=== PATIENT | male | born 1935 | race Caucasian/White ===

== ENCOUNTER 2016-09-13 09:14 | Inpatient (IN) | payer OTHER ==
[~2016-09-13] VITALS: Ht 177.8 cm; Wt 63.0 kg
[~2016-09-13 09:14] MED LIST: CELLCEPT250 MG PO; FLOMAX0.4 MG PO; METOPROLOL TART50 MG PO; NORCO 5/3251 TABLET PO
[2016-09-13 10:44] LABS: EOSINOPHIL (%) 0.2 % (0-5); HEMATOCRIT 39.8 % (38.0-50.0); IMMATURE GRANULOCYTE (%) 0.8 % (0.0-0.7); IMMATURE GRANULOCYTE COUNT 0.5 K/uL; LYMPHOCYTE COUNT 1.2 K/uL (1.0-2.8); MCH 31.5 PG (29.0-34.0); MCHC 33.4 G/DL (30.0-36.0); MCV 94.3 FL (86-99); MEAN PLAT.VOLUME 9.2 uM^3 (9.0-12.4); MONOCYTE (%) 10.7 % (3-12); MONOCYTE COUNT 0.7 K/uL (0-0.8); NEUTROPHIL (%) 69.6 % (45-76); NEUTROPHIL COUNT 4.5 K/uL (1.8-6.4); PLATELET COUNT 143 K/uL (156-360); RBC DIS.WIDTH-CV 15.3 % (11.8-14.6); RBC DIS.WIDTH-SD 50.5 % (39-53); RED BLOOD COUNT 4.22 M/uL (4.00-5.50); WHITE BLOOD COUNT 6.5 K/uL (4.1-10.2)
[2016-09-13 11:05] LABS: CHLORIDE 114 mEq/L (99-109); POTASSIUM 4.8 mEq/L (3.7-5.4); SODIUM 139 mEq/L (136-147)
[2016-09-13 11:07] LABS: GLUCOSE 101 mg/dL (70-99)
[2016-09-13 11:08] LABS: ANION GAP 13 MEQ/L (2-14)
[2016-09-13 11:09] LABS: TOTAL BILIRUBIN 0.4 mg/dL (0.0-1.0)
[2016-09-13 11:10] LABS: ALKALINE PHOSPHATASE 158 IU/L (3-129)
[2016-09-13 11:11] LABS: GFR ESTIMATE (CALCULATED) 14 mL/min/
[2016-09-13 11:12] LABS: UREA NITROGEN (BUN) 51 mg/dL (9-23)
[2016-09-13 11:14] LABS: LIPASE 47 U/L (1.0-51.0)
[2016-09-13] MEDS ORDERED: LOPRESSOR25 MG PO (12:30)
[2016-09-13] MEDS ORDERED: TYLENOL EXTRA500 MG PO (12:31)
[2016-09-13] MEDS ORDERED: ZINC50 M1 PO (12:32)
[2016-09-13] MEDS ORDERED: VITAMIN D2000 UNI1 PO (12:32)
[2016-09-13] MEDS ORDERED: ISOSORBIDE MONO30 MG PO (12:32)
[2016-09-13] MEDS ORDERED: FOLIC ACID0.4 MG PO (12:33)
[2016-09-13] MEDS ORDERED: SUPER B-50 COM1 EACH PO ×2 (12:33→12:34)
[2016-09-13] MEDS ORDERED: IRON325 M1 PO (12:34)
[2016-09-13] MEDS ORDERED: CYANOCOBALAM1000 MCG PO (12:34)
[2016-09-13] MEDS ORDERED: ANTI-DIARRHEA2 MG PO (12:35)
[2016-09-13] MEDS ORDERED: LO-DOSE ASPIRIN81 M1 PO (12:35)
[2016-09-13 12:46] LABS: C DIFF TOXIN NEGATIVE (NEGATIVE); PROBE CHECK PASS; SPECIMEN PROCESSING CONTROL PASS
[2016-09-13 15:25] LABS: ADD MIUA? YES; BILIRUBIN NEGATIVE; BLOOD MODERATE; COLOR YELLOW ((YELLOW)); GLUCOSE (STRIP) NEGATIVE; KETONES NEGATIVE; LEUKOCYTES LARGE; NITRITE NEGATIVE; PROTEIN (STRIP) 30; SPECIFIC GRAVITY 1.015 (1.000-1.030); UROBILINOGEN 0.2 MG/DL (0.2-1.0)
[2016-09-13 15:40] LABS: BACTERIA RARE /HPF; EPITHELIAL CELLS RARE /HPF; HYALINE CASTS 0-5 /LPF; MUCUS NONE SEEN /LPF; RED BLOOD CELLS TNTC /HPF (0-5); UCUL ADDED? NO; WHITE BLOOD CELLS 40-50 /HPF (0-5)
[2016-09-13 15:50] LABS: UR CREATININE CONCENTRATION 81.6 MG/DL
[2016-09-13 16:06] LABS: INTERNAL CONTROL VALID? YES
[2016-09-13 16:21] VITALS: BP 160/72
[2016-09-13 19:20] VITALS: BP 122/58
[2016-09-13 23:02] VITALS: BP 109/54
[2016-09-14 03:23] VITALS: BP 126/57
[2016-09-14 07:17] LABS: HEMATOCRIT 32.1 % (38.0-50.0); MCH 29.7 PG (29.0-34.0); MCHC 32.1 G/DL (30.0-36.0); MCV 92.5 FL (86-99); MEAN PLAT.VOLUME 9.6 uM^3 (9.0-12.4); PLATELET COUNT 116 K/uL (156-360); RBC DIS.WIDTH-SD 51.2 % (39-53); RED BLOOD COUNT 3.47 M/uL (4.00-5.50)
[2016-09-14 07:18] LABS: WHITE BLOOD COUNT 3.9 K/uL (4.1-10.2)
[2016-09-14 07:24] LABS: ANION GAP 8 MEQ/L (2-14); CHLORIDE 109 MEQ/L (99-109); GLUCOSE 87 mg/dL (70-99); SAMPLE HEMOLYSIS CHECK 0; SAMPLE ICTERIC CHECK 0; SAMPLE LIPEMIA CHECK 0; SODIUM 136 MEQ/L (136-147); UREA NITROGEN (BUN) 29 mg/dL (9-23)
[2016-09-14 07:25] LABS: GFR ESTIMATE (CALCULATED) 44 mL/min/
[2016-09-14 07:42] VITALS: BP 129/62
[2016-09-14 11:24] VITALS: BP 112/59
[2016-09-14 14:58] VITALS: BP 134/63
[2016-09-14 19:35] VITALS: BP 142/63
[2016-09-14 23:09] VITALS: BP 160/70
[2016-09-15 03:20] VITALS: BP 157/65
[2016-09-15 06:33] LABS: EOSINOPHIL (%) 1.7 % (0-5); EOSINOPHIL COUNT 0.1 K/uL (0-0.3); HEMATOCRIT 34.2 % (38.0-50.0); IMMATURE GRANULOCYTE (%) 0.2 % (0.0-0.7); LYMPHOCYTE COUNT 1.5 K/uL (1.0-2.8); MCH 29.3 PG (29.0-34.0); MCHC 31.6 G/DL (30.0-36.0); MCV 92.9 FL (86-99); MEAN PLAT.VOLUME 9.4 uM^3 (9.0-12.4); MONOCYTE (%) 13.7 % (3-12); MONOCYTE COUNT 0.6 K/uL (0-0.8); NEUTROPHIL (%) 49.1 % (45-76); NEUTROPHIL COUNT 2.1 K/uL (1.8-6.4); PLATELET COUNT 116 K/uL (156-360); RBC DIS.WIDTH-CV 14.9 % (11.8-14.6); RBC DIS.WIDTH-SD 50.9 % (39-53); RED BLOOD COUNT 3.68 M/uL (4.00-5.50); WHITE BLOOD COUNT 4.2 K/uL (4.1-10.2)
[2016-09-15 06:55] LABS: ANION GAP 7 MEQ/L (2-14); CHLORIDE 110 MEQ/L (99-109); GFR ESTIMATE (CALCULATED) > 59 mL/min/; GLUCOSE 96 mg/dL (70-99); POTASSIUM 3.9 MEQ/L (3.7-5.4); SAMPLE HEMOLYSIS CHECK 0; SAMPLE ICTERIC CHECK 0; SAMPLE LIPEMIA CHECK 0; SODIUM 136 MEQ/L (136-147); UREA NITROGEN (BUN) 19 mg/dL (9-23)
[2016-09-15 08:12] VITALS: BP 148/67
[2016-09-15 13:44] LABS: ADD MIUA? YES; BILIRUBIN NEGATIVE; BLOOD MODERATE; COLOR COLORLESS ((YELLOW)); GLUCOSE (STRIP) NEGATIVE; KETONES NEGATIVE; LEUKOCYTES NEGATIVE; NITRITE NEGATIVE; PROTEIN (STRIP) NEGATIVE; SPECIFIC GRAVITY 1.004 (1.000-1.030); UROBILINOGEN 0.2 MG/DL (0.2-1.0)
[2016-09-15 14:09] LABS: BACTERIA RARE /HPF; EPITHELIAL CELLS NONE SEEN /HPF; MUCUS TRACE /LPF; RED BLOOD CELLS TNTC /HPF (0-5); UCUL ADDED? NO; WHITE BLOOD CELLS 0-5 /HPF (0-5)
[2016-09-15 15:44] VITALS: BP 116/56
[2016-09-15 18:30] LABS: ANION GAP 6 MEQ/L (2-14); CHLORIDE 109 MEQ/L (99-109); GFR ESTIMATE (CALCULATED) > 59 mL/min/; GLUCOSE 86 mg/dL (70-99); POTASSIUM 3.8 MEQ/L (3.7-5.4); SAMPLE HEMOLYSIS CHECK 0; SAMPLE ICTERIC CHECK 0; SAMPLE LIPEMIA CHECK 0; SODIUM 137 MEQ/L (136-147); UREA NITROGEN (BUN) 17 mg/dL (9-23)
[2016-09-15 20:05] VITALS: BP 122/69
[2016-09-15 23:04] VITALS: BP 127/63
[2016-09-16 03:32] VITALS: BP 125/69
[2016-09-16 06:08] LABS: EOSINOPHIL COUNT 0.2 K/uL (0-0.3); IMMATURE GRANULOCYTE (%) 0.2 % (0.0-0.7); LYMPHOCYTE COUNT 1.6 K/uL (1.0-2.8); MCH 30.7 PG (29.0-34.0); MCHC 32.7 G/DL (30.0-36.0); MCV 93.9 FL (86-99); MEAN PLAT.VOLUME 10.2 uM^3 (9.0-12.4); MONOCYTE (%) 13.8 % (3-12); MONOCYTE COUNT 0.7 K/uL (0-0.8); NEUTROPHIL (%) 50.1 % (45-76); NEUTROPHIL COUNT 2.5 K/uL (1.8-6.4); PLATELET COUNT 126 K/uL (156-360); RBC DIS.WIDTH-SD 52.1 % (39-53); RED BLOOD COUNT 3.94 M/uL (4.00-5.50); WHITE BLOOD COUNT 4.9 K/uL (4.1-10.2)
[2016-09-16 06:36] LABS: ANION GAP 7 MEQ/L (2-14); CHLORIDE 104 MEQ/L (99-109); GFR ESTIMATE (CALCULATED) > 59 mL/min/; GLUCOSE 84 mg/dL (70-99); POTASSIUM 3.5 MEQ/L (3.7-5.4); SAMPLE HEMOLYSIS CHECK 0; SAMPLE ICTERIC CHECK 0; SAMPLE LIPEMIA CHECK 0; SODIUM 134 MEQ/L (136-147); UREA NITROGEN (BUN) 15 mg/dL (9-23)
[2016-09-16 06:53] VITALS: BP 144/65
[2016-09-16 10:42] VITALS: BP 105/58
[2016-09-16] MEDS ORDERED: FINASTERIDE5 MG PO (15:02)
[2016-09-16 15:32] VITALS: BP 108/63
== END 2016-09-16 17:16 | disposition home health service (06) | DRG 683 ==
LOC: EME 09:14 → 5EAST 12:02 → EDOF 12:02 → 5EAST 15:31
PROVIDERS: Emergency Medicine; Hospitalist; Internal Medicine; Specialist
DX: N17.9 Acute kidney failure, unspecified (principal); K52.9 Noninfective gastroenteritis and colitis, unspecified; N40.1 Benign prostatic hyperplasia with lower urinary tract symptoms; R33.8 Other retention of urine; N13.39 Other hydronephrosis; E87.2 Acidosis; E86.0 Dehydration; I10 Essential (primary) hypertension; Z85.038 Personal history of other malignant neoplasm of large intestine; Z85.828 Personal history of other malignant neoplasm of skin; Z87.891 Personal history of nicotine dependence
CPT/HCPCS: 71010; 74176; 76770; 80048; 80048 91; 80053; 81003; 82436; 82570; 83516 90; 83630; 83690; 84133; 84300; 85025; 85027; 87177; 87206; 87493; 87506; 89125; 93306; 97530 GO; 99281; 99285; G0103; J1644; J1940; J2405; J7030; J7517

== ENCOUNTER 2016-09-24 00:30 | Emergency (ER) | payer OTHER ==
[~2016-09-24] VITALS: Ht 177.8 cm; Wt 62.9 kg
[~2016-09-24 00:30] MED LIST changes: +ANTI-DIARRHEA2 MG PO; +CYANOCOBALAM1000 MCG PO; +FINASTERIDE5 MG PO; +FOLIC ACID0.4 MG PO; +IRON325 M1 PO; +ISOSORBIDE MONO30 MG PO; +LO-DOSE ASPIRIN81 M1 PO; +LOPRESSOR25 MG PO; +SUPER B-50 COM1 EACH PO; +TYLENOL EXTRA500 MG PO; +VITAMIN D2000 UNI1 PO; +ZINC50 M1 PO
[2016-09-24 02:39] LABS: HEMATOCRIT 38.1 % (38.0-50.0); MCH 30.6 PG (29.0-34.0); MCHC 31.8 G/DL (30.0-36.0); MCV 96.2 FL (86-99); MEAN PLAT.VOLUME 8.9 uM^3 (9.0-12.4); RBC DIS.WIDTH-CV 14.6 % (11.8-14.6); RBC DIS.WIDTH-SD 51.8 % (39-53); RED BLOOD COUNT 3.96 M/uL (4.00-5.50); WHITE BLOOD COUNT 5.8 K/uL (4.1-10.2)
[2016-09-24 02:54] LABS: PLATELET COUNT 190 K/uL (156-360)
[2016-09-24 02:57] LABS: CHLORIDE 112 mEq/L (99-109); POTASSIUM 4.4 mEq/L (3.7-5.4); SODIUM 141 mEq/L (136-147)
[2016-09-24 02:59] LABS: GLUCOSE 103 mg/dL (70-99)
[2016-09-24 03:00] LABS: ANION GAP 10 MEQ/L (2-14)
[2016-09-24 03:03] LABS: GFR ESTIMATE (CALCULATED) > 59 mL/min/; UREA NITROGEN (BUN) 22 mg/dL (9-23)
[2016-09-24 03:15] LABS: COLOR BLOODY ((YELLOW)); LEUKOCYTES SMALL; NITRITE POSITIVE; PROTEIN (STRIP) 300; SPECIFIC GRAVITY 1.024 (1.000-1.030)
[2016-09-24 03:16] LABS: ADD MIUA? YES; BILIRUBIN NEGATIVE; BLOOD LARGE; GLUCOSE (STRIP) NEGATIVE; KETONES NEGATIVE; RED BLOOD CELLS TNTC /HPF (0-5); UCUL ADDED? YES; UROBILINOGEN 0.2 MG/DL (0.2-1.0)
[2016-09-24] MEDS ORDERED: CIPRO500 MG PO (03:19)
[2016-09-24 04:14] VITALS: BP 136/76
== END 2016-09-24 04:12 | disposition home or self-care (01) ==
LOC: EME 00:30
PROVIDERS: Emergency Medicine
DX: N39.0 Urinary tract infection, site not specified (principal); R31.9 Hematuria, unspecified; E83.51 Hypocalcemia; I12.9 Hypertensive chronic kidney disease with stage 1 through stage 4 chronic kidney disease, or unspecified chronic kidney disease; N18.9 Chronic kidney disease, unspecified; Z96.0 Presence of urogenital implants; Z79.82 Long term (current) use of aspirin; Z87.891 Personal history of nicotine dependence
CPT/HCPCS: 80048; 81003; 85027; 86850; 86900; 86901; 87077; 87086; 87186; 99281; 99284

== ENCOUNTER 2017-12-27 04:40 | Inpatient (IN) | payer OTHER ==
[~2017-12-27] VITALS: Ht 177.8 cm; Wt 50.8 kg
[~2017-12-27 04:40] MED LIST changes: +CIPRO500 MG PO
[2017-12-27 06:12] LABS: HEMATOCRIT 35.5 % (38.0-50.0); HEMOGLOBIN 11.6 G/DL (12.5-16.6); MCH 31.4 PG (29.0-34.0); MCHC 32.7 G/DL (30.0-36.0); MCV 95.9 FL (86-99); PLATELET COUNT 153 K/uL (156-360); RBC DIS.WIDTH-CV 15.3 % (11.8-14.6); RBC DIS.WIDTH-SD 53.7 % (39-53); WHITE BLOOD COUNT 4.8 K/uL (4.1-10.2)
[2017-12-27 06:18] LABS: INTER. NORMALIZED RATIO 1.1
[2017-12-27 06:21] LABS: CHLORIDE 104 mEq/L (99-109); POTASSIUM 4.1 mEq/L (3.7-5.4); PTT 32.4 SEC (25-37); SODIUM 136 mEq/L (136-147)
[2017-12-27 06:22] LABS: GLUCOSE 96 mg/dL (70-99)
[2017-12-27 06:26] LABS: CREATININE 0.9 mg/dL (0.6-1.3); GFR ESTIMATE (CALCULATED) > 59 mL/min/ (58.99-99999)
[2017-12-27 06:27] LABS: UREA NITROGEN (BUN) 19 mg/dL (9-23)
[2017-12-27 06:35] LABS: APPEARANCE SL.HAZY ((CLEAR)); BILIRUBIN NEGATIVE; BLOOD NEGATIVE; COLOR YELLOW ((YELLOW)); GLUCOSE (STRIP) NEGATIVE; KETONES NEGATIVE; LEUKOCYTES MODERATE; NITRITE NEGATIVE; PROTEIN (STRIP) 30; SPECIFIC GRAVITY 1.015 (1.000-1.030); UROBILINOGEN 0.2 MG/DL (0.2-1.0)
[2017-12-27 06:35] LABS: TROP-I INTERPRETATION NEGATIVE; TROPONIN-I 0.01 ng/mL (0.0-0.30)
[2017-12-27 06:40] LABS: BACTERIA NONE SEEN /HPF; EPITHELIAL CELLS RARE /HPF; MUCUS TRACE /LPF; RED BLOOD CELLS 0-5 /HPF (0-5); UCUL ADDED? YES; WHITE BLOOD CELLS TNTC /HPF (0-5)
[2017-12-27] MEDS ORDERED: CREON DR 12,001 EAC1 PO ×3 (08:33→08:41)
[2017-12-27] MEDS ORDERED: PLAVIX75 MG PO (08:34)
[2017-12-27] MEDS ORDERED: LIPITOR20 MG PO (08:35)
[2017-12-27] MEDS ORDERED: LASIX20 MG PO (08:41)
[2017-12-27 09:11] VITALS: BP 148/70
[2017-12-27 15:31] VITALS: BP 103/54
[2017-12-27 19:48] VITALS: BP 113/68
[2017-12-27 23:13] VITALS: BP 149/85
[2017-12-28 04:04] VITALS: BP 134/63
[2017-12-28 06:38] LABS: HEMATOCRIT 28.8 % (38.0-50.0); MCH 30.9 PG (29.0-34.0); MCHC 32.3 G/DL (30.0-36.0); MCV 95.7 FL (86-99); PLATELET COUNT 129 K/uL (156-360); RBC DIS.WIDTH-CV 14.8 % (11.8-14.6); RBC DIS.WIDTH-SD 52.2 % (39-53); RED BLOOD COUNT 3.01 M/uL (4.00-5.50); WHITE BLOOD COUNT 5.4 K/uL (4.1-10.2)
[2017-12-28 06:39] LABS: HEMOGLOBIN 9.3 G/DL (12.5-16.6)
[2017-12-28 06:46] LABS: CHLORIDE 106 MEQ/L (99-109); CREATININE 0.9 MG/DL (0.6-1.3); GFR ESTIMATE (CALCULATED) > 59 mL/min/ (58.99-99999); GLUCOSE 93 mg/dL (70-99); SODIUM 135 MEQ/L (136-147); UREA NITROGEN (BUN) 20 mg/dL (9-23)
[2017-12-28 07:57] VITALS: BP 122/59
[2017-12-28 11:33] VITALS: BP 140/64
[2017-12-28 17:12] VITALS: BP 98/55
[2017-12-28 19:56] VITALS: BP 94/55
[2017-12-28 23:06] VITALS: BP 98/51
[2017-12-29] VITALS (13 sets, daily range): BP systolic 96–131; BP diastolic 50–62
[2017-12-29 05:36] LABS: HEMATOCRIT 22.2 % (38.0-50.0); HEMOGLOBIN 7.1 G/DL (12.5-16.6); MCH 30.7 PG (29.0-34.0); MCV 96.1 FL (86-99); PLATELET COUNT 125 K/uL (156-360); RBC DIS.WIDTH-SD 52.9 % (39-53); RED BLOOD COUNT 2.31 M/uL (4.00-5.50); WHITE BLOOD COUNT 8.3 K/uL (4.1-10.2)
[2017-12-29 06:03] LABS: CHLORIDE 110 MEQ/L (99-109); GFR ESTIMATE (CALCULATED) > 59 mL/min/ (58.99-99999); GLUCOSE 138 mg/dL (70-99); POTASSIUM 4.3 MEQ/L (3.7-5.4); SODIUM 137 MEQ/L (136-147); UREA NITROGEN (BUN) 28 mg/dL (9-23)
[2017-12-29 13:42] LABS: HEMATOCRIT 20.6 % (38.0-50.0); HEMOGLOBIN 6.6 G/DL (12.5-16.6); MCV 97.6 FL (86-99)
[2017-12-29 21:41] LABS: HEMATOCRIT 27.2 % (38.0-50.0); MCV 94.8 FL (86-99)
[2017-12-29 21:42] LABS: HEMOGLOBIN 8.8 G/DL (12.5-16.6)
[2017-12-30 05:50] LABS: HEMATOCRIT 25.7 % (38.0-50.0); HEMOGLOBIN 8.5 G/DL (12.5-16.6); MCH 30.9 PG (29.0-34.0); MCHC 33.1 G/DL (30.0-36.0); MCV 93.5 FL (86-99); PLATELET COUNT 122 K/uL (156-360); RBC DIS.WIDTH-CV 15.3 % (11.8-14.6); RBC DIS.WIDTH-SD 52.4 % (39-53); RED BLOOD COUNT 2.75 M/uL (4.00-5.50); WHITE BLOOD COUNT 7.2 K/uL (4.1-10.2)
[2017-12-30 06:14] LABS: CHLORIDE 108 MEQ/L (99-109); CREATININE 1.1 MG/DL (0.6-1.3); GFR ESTIMATE (CALCULATED) > 59 mL/min/ (58.99-99999); POTASSIUM 4.7 MEQ/L (3.7-5.4); SODIUM 133 MEQ/L (136-147); UREA NITROGEN (BUN) 32 mg/dL (9-23)
[2017-12-30 06:19] LABS: GLUCOSE 98 mg/dL (70-99)
[2017-12-30 08:12] VITALS: BP 115/55
[2017-12-30 11:42] VITALS: BP 111/63
[2017-12-30 15:56] VITALS: BP 116/55
[2017-12-30 19:54] VITALS: BP 118/74
[2017-12-30 23:10] VITALS: BP 123/60
[2017-12-31 06:28] LABS: BASOPHIL (%) 0.7 % (0-1); BASOPHIL COUNT 0.1 K/uL (0-0.1); EOSINOPHIL (%) 0.6 % (0-5); HEMATOCRIT 28.6 % (38.0-50.0); HEMOGLOBIN 9.2 G/DL (12.5-16.6); IMMATURE GRANULOCYTE (%) 0.4 % (0.0-0.7); LYMPHOCYTE (%) 27.4 % (15-42); LYMPHOCYTE COUNT 1.9 K/uL (1.0-2.8); MCH 30.5 PG (29.0-34.0); MCHC 32.2 G/DL (30.0-36.0); MCV 94.7 FL (86-99); MONOCYTE (%) 16.4 % (3-12); MONOCYTE COUNT 1.1 K/uL (0-0.8); NEUTROPHIL (%) 54.5 % (45-76); NEUTROPHIL COUNT 3.7 K/uL (1.8-6.4); PLATELET COUNT 141 K/uL (156-360); RBC DIS.WIDTH-SD 52.9 % (39-53); RED BLOOD COUNT 3.02 M/uL (4.00-5.50); WHITE BLOOD COUNT 6.8 K/uL (4.1-10.2)
[2017-12-31 08:02] VITALS: BP 122/58
[2017-12-31 12:31] VITALS: BP 119/58
[2017-12-31 12:33] VITALS: BP 112/54
[2017-12-31 16:13] VITALS: BP 134/58
[2017-12-31 19:23] VITALS: BP 122/56
[2017-12-31 23:21] VITALS: BP 134/66
[2018-01-01 03:20] VITALS: BP 127/61
[2018-01-01 06:20] LABS: HEMATOCRIT 28.3 % (38.0-50.0); HEMOGLOBIN 9.1 G/DL (12.5-16.6); MCH 30.5 PG (29.0-34.0); MCHC 32.2 G/DL (30.0-36.0); PLATELET COUNT 175 K/uL (156-360); RBC DIS.WIDTH-CV 14.9 % (11.8-14.6); RBC DIS.WIDTH-SD 51.9 % (39-53); RED BLOOD COUNT 2.98 M/uL (4.00-5.50); WHITE BLOOD COUNT 6.2 K/uL (4.1-10.2)
[2018-01-01 06:45] LABS: CHLORIDE 107 MEQ/L (99-109); CREATININE 0.8 MG/DL (0.6-1.3); GFR ESTIMATE (CALCULATED) > 59 mL/min/ (58.99-99999); GLUCOSE 95 mg/dL (70-99); POTASSIUM 4.6 MEQ/L (3.7-5.4); SODIUM 136 MEQ/L (136-147); UREA NITROGEN (BUN) 33 mg/dL (9-23)
[2018-01-01 07:37] VITALS: BP 127/62
[2018-01-01 12:07] VITALS: BP 111/55
[2018-01-01 15:55] VITALS: BP 104/55
[2018-01-01 19:39] VITALS: BP 111/66
[2018-01-02] VITALS (7 sets, daily range): BP systolic 101–142; BP diastolic 54–71
[2018-01-02 06:31] LABS: HEMATOCRIT 26.2 % (38.0-50.0); HEMOGLOBIN 8.4 G/DL (12.5-16.6); MCH 30.8 PG (29.0-34.0); MCHC 32.1 G/DL (30.0-36.0); PLATELET COUNT 180 K/uL (156-360); RBC DIS.WIDTH-CV 14.9 % (11.8-14.6); RED BLOOD COUNT 2.73 M/uL (4.00-5.50); WHITE BLOOD COUNT 5.9 K/uL (4.1-10.2)
[2018-01-02 06:54] LABS: CHLORIDE 105 MEQ/L (99-109); CREATININE 0.8 MG/DL (0.6-1.3); GFR ESTIMATE (CALCULATED) > 59 mL/min/ (58.99-99999); GLUCOSE 90 mg/dL (70-99); POTASSIUM 4.7 MEQ/L (3.7-5.4); SODIUM 134 MEQ/L (136-147); UREA NITROGEN (BUN) 36 mg/dL (9-23)
[2018-01-03 00:28] LABS: C DIFF TOXIN NEGATIVE (NEGATIVE)
[2018-01-03 04:30] VITALS: BP 125/68
[2018-01-03 08:12] VITALS: BP 122/59
[2018-01-03 09:56] LABS: HEMATOCRIT 30.7 % (38.0-50.0); HEMOGLOBIN 9.8 G/DL (12.5-16.6); MCH 30.7 PG (29.0-34.0); MCHC 31.9 G/DL (30.0-36.0); MCV 96.2 FL (86-99); PLATELET COUNT 221 K/uL (156-360); RBC DIS.WIDTH-CV 14.6 % (11.8-14.6); RBC DIS.WIDTH-SD 51.4 % (39-53); RED BLOOD COUNT 3.19 M/uL (4.00-5.50); WHITE BLOOD COUNT 6.4 K/uL (4.1-10.2)
[2018-01-03 11:21] LABS: ALBUMIN 2.8 G/DL (3.2-4.8); ALKALINE PHOSPHATASE 120 IU/L (3-129); ALT (GPT) 10 IU/L (3-49); AST (GOT) 20 IU/L (2-34); CHLORIDE 104 MEQ/L (99-109); CREATININE 0.7 MG/DL (0.6-1.3); GFR ESTIMATE (CALCULATED) > 59 mL/min/ (58.99-99999); GLUCOSE 89 mg/dL (70-99); POTASSIUM 4.2 MEQ/L (3.7-5.4); SODIUM 136 MEQ/L (136-147); TOTAL BILIRUBIN 0.7 MG/DL (0.0-1.0); TOTAL PROTEIN 4.8 G/DL (6.4-8.3); UREA NITROGEN (BUN) 30 mg/dL (9-23)
[2018-01-03] MEDS ORDERED: TAMSULOSIN HCL0.4 MG PO (12:29)
[2018-01-03] MEDS ORDERED: ELIQUIS2.5 MG PO (12:31)
[2018-01-03] MEDS ORDERED: HYDROCODON-ACE1 EAC7 PO (12:31)
[2018-01-03 13:19] VITALS: BP 140/70
== END 2018-01-03 14:02 | DRG 481 ==
LOC: EME 04:40 → EDOF 07:26 → 3EAST 07:26 → ENRESERV 07:28 → 3EAST 08:48
PROVIDERS: Emergency Medicine; Family Medicine; Hospitalist; Internal Medicine; Orthopaedic Surgery
PROC: 0QS636Z Reposition Right Upper Femur with Intramedullary Internal Fixation Device, Percutaneous Approach (ICD-10-PCS; principal; 2017-12-28)
PROC: 30233N1 Transfusion of Nonautologous Red Blood Cells into Peripheral Vein, Percutaneous Approach (ICD-10-PCS; 2017-12-29)
DX: S72.141A Displaced intertrochanteric fracture of right femur, initial encounter for closed fracture (principal); I95.9 Hypotension, unspecified; N39.0 Urinary tract infection, site not specified; D64.9 Anemia, unspecified; I48.91 Unspecified atrial fibrillation; D62 Acute posthemorrhagic anemia; I10 Essential (primary) hypertension; E78.5 Hyperlipidemia, unspecified; N40.0 Benign prostatic hyperplasia without lower urinary tract symptoms; W01.0XXA Fall on same level from slipping, tripping and stumbling without subsequent striking against object, initial encounter; I25.10 Atherosclerotic heart disease of native coronary artery without angina pectoris; I25.2 Old myocardial infarction; Z85.038 Personal history of other malignant neoplasm of large intestine; Z90.49 Acquired absence of other specified parts of digestive tract; Z87.891 Personal history of nicotine dependence; K59.00 Constipation, unspecified; Z79.01 Long term (current) use of anticoagulants; R19.7 Diarrhea, unspecified
CPT/HCPCS: 70450; 72125; 72192; 73502; 73552; 76000; 80048; 80053; 81003; 82272; 84484; 85014; 85018; 85025; 85027; 85610; 85730; 86850; 86900; 86901; 86920; 87077; 87086; 87186; 87493; 93005; 99281; 99285; C1713; C1755; J0131; J0690; J0696; J0744; J1100; J1170; J2405; J2710; J3010; J7030; J7517; J7643; P9016

== ENCOUNTER 2018-03-02 15:01 | Inpatient (IN) | payer OTHER ==
[~2018-03-02] VITALS: Ht 177.8 cm; Wt 48.8 kg
[~2018-03-02 15:01] MED LIST changes: +CREON DR 12,001 EAC1 PO; +ELIQUIS2.5 MG PO; +HYDROCODON-ACE1 EAC7 PO; +LASIX20 MG PO; +LIPITOR40 MG PO; +PLAVIX75 MG PO; +TAMSULOSIN HCL0.4 MG PO; -VITAMIN D2000 UNI1 PO; +VITAMIN D31000 UNIT PO
[2018-03-02 16:21] LABS: HEMATOCRIT 37.1 % (38.0-50.0); HEMOGLOBIN 12.1 G/DL (12.5-16.6); MCH 30.2 PG (29.0-34.0); MCHC 32.6 G/DL (30.0-36.0); MCV 92.5 FL (86-99); PLATELET COUNT 187 K/uL (156-360); RBC DIS.WIDTH-SD 54.6 % (39-53); RED BLOOD COUNT 4.01 M/uL (4.00-5.50); WHITE BLOOD COUNT 4.9 K/uL (4.1-10.2)
[2018-03-02 16:32] LABS: CHLORIDE 104 mEq/L (99-109); POTASSIUM 4.5 mEq/L (3.7-5.4); SODIUM 134 mEq/L (136-147)
[2018-03-02 16:33] LABS: GLUCOSE 95 mg/dL (70-99)
[2018-03-02 16:37] LABS: CREATININE 0.8 mg/dL (0.6-1.3); GFR ESTIMATE (CALCULATED) > 59 mL/min/ (58.99-99999)
[2018-03-02 16:38] LABS: UREA NITROGEN (BUN) 20 mg/dL (9-23)
[2018-03-02 16:43] LABS: TROP-I INTERPRETATION NEGATIVE; TROPONIN-I 0.01 ng/mL (0.0-0.30)
[2018-03-02 21:51] LABS: TROP-I INTERPRETATION NEGATIVE; TROPONIN-I 0.01 ng/mL (0.0-0.30)
[2018-03-02 22:04] VITALS: BP 109/55
[2018-03-02] MEDS ORDERED: OMEPRAZOLE40 M1 PO (22:16)
[2018-03-03 04:40] LABS: TROP-I INTERPRETATION NEGATIVE; TROPONIN-I 0.01 ng/mL (0.0-0.30)
[2018-03-03 04:43] VITALS: BP 110/55
[2018-03-03 07:22] VITALS: BP 131/61
[2018-03-03 11:15] VITALS: BP 120/63
[2018-03-03 16:48] VITALS: BP 130/60
[2018-03-03 17:52] LABS: C DIFF TOXIN NEGATIVE (NEGATIVE)
[2018-03-03 19:30] VITALS: BP 153/66
[2018-03-03 21:05] LABS: CHLORIDE 106 mEq/L (99-109); MAGNESIUM 1.2 mg/dL (1.3-2.7); SODIUM 135 mEq/L (136-147)
[2018-03-03 21:06] LABS: GLUCOSE 99 mg/dL (70-99)
[2018-03-03 21:10] LABS: CREATININE 0.7 mg/dL (0.6-1.3); GFR ESTIMATE (CALCULATED) > 59 mL/min/ (58.99-99999)
[2018-03-03 21:11] LABS: UREA NITROGEN (BUN) 16 mg/dL (9-23)
[2018-03-03 21:17] LABS: POTASSIUM 3.5 mEq/L (3.7-5.4)
[2018-03-04 00:17] VITALS: BP 101/54
[2018-03-04 04:12] VITALS: BP 140/63
[2018-03-04 06:01] LABS: IRON 54 MCG/DL (35-150); TRANSFERRIN (TIBC) 149.7 mg/dL (215-380); TRANSFERRIN SATUR. 36 % (20-55)
[2018-03-04 08:24] VITALS: BP 117/56
[2018-03-04 08:34] LABS: FERRITIN 333 NG/ML (22-322)
[2018-03-04 08:45] LABS: CHLORIDE 105 MEQ/L (99-109); CREATININE 0.7 MG/DL (0.6-1.3); GFR ESTIMATE (CALCULATED) > 59 mL/min/ (58.99-99999); GLUCOSE 92 mg/dL (70-99); MAGNESIUM 1.1 mg/dl (1.3-2.7); POTASSIUM 4.1 MEQ/L (3.7-5.4); SODIUM 136 MEQ/L (136-147); UREA NITROGEN (BUN) 15 mg/dL (9-23)
[2018-03-04 09:49] LABS: HEMOGLOBIN 11.4 G/DL (12.5-16.6); MCH 29.8 PG (29.0-34.0); MCHC 31.7 G/DL (30.0-36.0); MCV 94.2 FL (86-99); PLATELET COUNT 167 K/uL (156-360); RBC DIS.WIDTH-SD 55.7 % (39-53); RED BLOOD COUNT 3.82 M/uL (4.00-5.50); WHITE BLOOD COUNT 6.5 K/uL (4.1-10.2)
[2018-03-04 11:40] VITALS: BP 102/54
[2018-03-04] MEDS ORDERED: PLAVIX75 MG PO (12:04)
[2018-03-04] MEDS ORDERED: LOW DOSE ASPIRI81 M1 PO (12:06)
[2018-03-04 16:16] VITALS: BP 99/87
[2018-03-04 19:52] VITALS: BP 102/57
[2018-03-05] VITALS (8 sets, daily range): BP systolic 92–118; BP diastolic 48–76
[2018-03-05 05:47] LABS: CHLORIDE 105 MEQ/L (99-109); CREATININE 0.9 MG/DL (0.6-1.3); GFR ESTIMATE (CALCULATED) > 59 mL/min/ (58.99-99999); GLUCOSE 95 mg/dL (70-99); POTASSIUM 4.5 MEQ/L (3.7-5.4); SODIUM 135 MEQ/L (136-147); UREA NITROGEN (BUN) 22 mg/dL (9-23)
[2018-03-05 06:53] LABS: HEMOGLOBIN A1c (GLYCOHEMOGLOB) 4.6 % (Below 5.7)
[2018-03-06 03:36] VITALS: BP 103/59
[2018-03-06 07:41] VITALS: BP 90/50
[2018-03-06 11:16] VITALS: BP 102/56
[2018-03-06 12:32] LABS: APPEARANCE CLEAR ((CLEAR)); BILIRUBIN NEGATIVE; BLOOD NEGATIVE; COLOR YELLOW ((YELLOW)); GLUCOSE (STRIP) NEGATIVE; KETONES NEGATIVE; LEUKOCYTES TRACE; NITRITE NEGATIVE; PROTEIN (STRIP) NEGATIVE; SPECIFIC GRAVITY 1.017 (1.000-1.030); UROBILINOGEN 0.2 MG/DL (0.2-1.0)
[2018-03-06 12:37] LABS: BACTERIA NONE SEEN /HPF; EPITHELIAL CELLS RARE /HPF; MUCUS TRACE /LPF; RED BLOOD CELLS 0-5 /HPF (0-5); WHITE BLOOD CELLS 0-5 /HPF (0-5)
[2018-03-06 15:27] VITALS: BP 100/56
[2018-03-06 19:46] VITALS: BP 105/55
[2018-03-07 00:31] VITALS: BP 116/59
[2018-03-07 04:55] VITALS: BP 105/59
[2018-03-07 07:40] VITALS: BP 109/62
[2018-03-07 11:36] VITALS: BP 119/64
[2018-03-07 16:26] VITALS: BP 115/58
[2018-03-07 19:31] VITALS: BP 142/64
== END 2018-03-07 20:06 | DRG 313 ==
LOC: DELPENDDIS → EME 15:01 → EDOF 19:42 → 4SOUTH 19:42 → EDOF 19:42 → ENRESERV 19:44 → 4SOUTH 21:48 → ENPENDDIS 03-06 13:27 → 4SOUTH 03-07 20:06
PROVIDERS: Hospitalist; Internal Medicine; Physician Assistant; Specialist
DX: R07.9 Chest pain, unspecified (principal); K52.9 Noninfective gastroenteritis and colitis, unspecified; R63.4 Abnormal weight loss; R53.1 Weakness; I12.9 Hypertensive chronic kidney disease with stage 1 through stage 4 chronic kidney disease, or unspecified chronic kidney disease; E78.5 Hyperlipidemia, unspecified; N18.9 Chronic kidney disease, unspecified; I95.9 Hypotension, unspecified; D64.9 Anemia, unspecified; M19.90 Unspecified osteoarthritis, unspecified site; R42 Dizziness and giddiness; M85.80 Other specified disorders of bone density and structure, unspecified site; N40.0 Benign prostatic hyperplasia without lower urinary tract symptoms; I45.10 Unspecified right bundle-branch block; S72.001A Fracture of unspecified part of neck of right femur, initial encounter for closed fracture; I25.2 Old myocardial infarction; Z85.038 Personal history of other malignant neoplasm of large intestine; Z87.891 Personal history of nicotine dependence; Z79.01 Long term (current) use of anticoagulants; Z79.899 Other long term (current) drug therapy; Z68.1 Body mass index [BMI] 19.9 or less, adult; Z90.49 Acquired absence of other specified parts of digestive tract; Z79.82 Long term (current) use of aspirin
CPT/HCPCS: 71046; 80048; 81003; 82607; 82705; 82728; 82746; 83036; 83540; 83735; 84466; 84484; 85027; 87040; 87086; 87177; 87329; 87493; 93005; 99281; 99285; G0378; J1644; J2543; J3475; J7030; J7040; J7050; J7517